=== PATIENT | female | born 1955 | race African-American/Black ===

== ENCOUNTER 2022-06-26 16:53 | Emergency (ER) | payer OTHER, MEDICARE ==
[~2022-06-26] VITALS: Ht 167.6 cm; Wt 68.9 kg
--- NOTE | 2022-06-26 16:55 | NUR ---
RECEIVED PT FROM [facility]. PT RAJ ACLS FOR C/O N/V X1 WHILE EATING AT [employer]. PT'S SBP IN THE 80, VSS AT THIS TIME. PT AAOX4. ON R/A. DENIES N/V/D/C AT THIS TIME. DISTAL PULSES NORMAL. SKIN WARM, NO EDEMA, DENIES PAIN. SIDERAILS UP X2.
--- NOTE | 2022-06-26 17:00 | NUR ---
DR. DIAZ AT BEDSIDE AT THIS TIME.
--- NOTE | 2022-06-26 17:10 | NUR ---
EKG OBTAINED AND GIVEN TO
--- NOTE | 2022-06-26 17:20 | NUR ---
BLOOD OBTAINED AND TAKEN TO LAB.
[2022-06-26 17:24] VITALS: BP_SYST 122
[2022-06-26] MEDS ORDERED: ONDA-8 TL (17:37)
[2022-06-26 17:42] LABS: BASOPHILS # (AUTO) 0.1 K/uL (0.0-0.2); BASOPHILS % (AUTO) 1.1 % (0.0-2.0); EOSINOPHILS # (AUTO) 0.1 K/uL (0.0-0.4); EOSINOPHILS % (AUTO) 2.2 % (0.0-4.0); HEMATOCRIT 41.2 % (36-48); HEMOGLOBIN 13.7 g/dL (12.0-16.0); LYMPHOCYTES # (AUTO) 1.8 K/uL (1.0-5.5); LYMPHOCYTES % (AUTO) 25.9 % (20.5-51.5); MEAN CORPUSCULAR HEMOGLOBIN 31 pg (27-31); MEAN CORPUSCULAR HGB CONC 33 % (32-36); MEAN CORPUSCULAR VOLUME 93 fL (79.0-98.0); MONOCYTES % (AUTO) 14.5 % (1.7-9.3); NEUTROPHILS # (AUTO) 3.8 K/uL (1.8-7.7); NEUTROPHILS % (AUTO) 56.3 % (40.0-70.0); PLATELET COUNT (AUTO) 377 K/uL (130-430); RED BLOOD CELL COUNT(AUTO) 4.43 MIL/uL (4.2-6.2); WHITE BLOOD COUNT (AUTO) 6.8 K/uL (4.8-10.8)
[2022-06-26 17:55] LABS: CALCIUM 9.7 mg/dL (8.4-11.0); CREATININE 2.09 mg/dL (0.55-1.30); TOTAL BILIRUBIN 0.4 mg/dL (0.0-1.0)
--- NOTE | 2022-06-26 18:12 | NUR ---
Patient given written and verbal discharge instructions and verbalizes understanding. ER MD discussed with patient the results and treatment provided. Patient in stable condition. ID arm band removed. Rx of ZOFRAN given. Patient educated on pain management and to follow up with PMD. Pain Scale . Opportunity for questions provided and answered. Medication side effect fact sheet provided.
[2022-06-26 18:13] VITALS: BP_SYST 122
== END 2022-06-26 18:12 | disposition home or self-care (01) ==
LOC: SED 16:53
DX: R55 Syncope and collapse (principal); N28.9 Disorder of kidney and ureter, unspecified; R11.2 Nausea with vomiting, unspecified; R53.1 Weakness; R42 Dizziness and giddiness; E78.5 Hyperlipidemia, unspecified; I10 Essential (primary) hypertension; Z79.899 Other long term (current) drug therapy
CPT/HCPCS: 36415; 80053; 85025; 93005; 99284